=== PATIENT | female | born 1945 | race Caucasian/White ===

== ENCOUNTER 2019-03-10 08:16 | Day surgery (SDC) | payer MEDICARE, OTHER ==
--- NOTE | 2019-03-07 07:50 | HP ---
DATE OF SURGERY: 03/10/2019 HISTORY OF PRESENT ILLNESS: The patient is a 73 year-old with some hemorrhoid problems for a while. She worked as a certified dental assistant. On occasion some blood in her stool. She is in need of follow up screening colonoscopy and interested in possible internal hemorrhoid banding. PAST MEDICAL HISTORY: Hypothyroidism, hypertension. PAST SURGICAL HISTORY: Cholecystectomy in the past. MEDICATIONS: Hydrochlorothiazide, Levothyroxine. ALLERGIES: PREDNISONE. FAMILY HISTORY: Negative for colon cancer. SOCIAL HISTORY: No current smoking. Denies alcohol abuse. REVIEW OF SYSTEMS: Twelve systems reviewed. No chest pain or palpitations other systems negative or noncontributory as above and per preadmission questionnaire. PHYSICAL EXAMINATION: GENERAL: No acute distress. HEENT: Sclerae nonicteric. NECK: No JVD. CHEST: Equal excursion, nonlabored breathing. CVS: Regular rhythm. ABDOMEN: Soft. EXTREMITIES: No significant edema. NEURO: Alert, oriented, moving extremities symmetrically. No gross motor deficits noted. RECTAL: Deferred timed to endoscopy exam. IMPRESSION: Need for follow up colonoscopy. The last colonoscopy was 5 to 10 years ago. Additionally has some hemorrhoid issues. She was discussed the options. She is interested in considering internal hemorrhoid banding if indicated at the time, will proceed with colonoscopy with possible internal hemorrhoid banding as an outpatient. Risks and benefits explained in detail including but not limited to bleeding or infection, risk of bowel injury or perforation possibly requiring open procedure, risk of missed or nondiagnosis or incomplete exam possibly requiring barium enema, other studies or procedures, general risk of anesthesia or sedation, risk of bowel prep, postoperative risk of nausea or cramping. General risk of hemorrhoid banding, risk of bleeding or infection, risk of sphincter irritability, remote risk of aches or cramping as well as the possibility she could have progression of hemorrhoid disease that might require the procedures either banding or consideration of excisional therapy down the road. She understands and agrees to the planned procedure, will proceed with colonoscopy with possible internal hemorrhoid banding as an outpatient.
[~2019-03-10 08:16] MED LIST: Lactated Ringers 1,000 ML IV SCH
[2019-03-10] MEDS ORDERED: DIPRIVAN 200 MG/20 ML IV ONE (08:17)
[2019-03-10] MEDS ORDERED: ANUSOL-HC 2.5% CREAM 30 GM ONE (11:42)
[2019-03-10 12:43] VITALS: BP 142/71; PULSE 81; O2SAT 95
--- NOTE | 2019-03-10 14:37 | OP ---
SURGERY DATE/TIME: 03/10/2019 1113 PREOPERATIVE DIAGNOSIS: History of intermittent rectal bleeding, history of some internal and external hemorrhoids, need for follow up colonoscopy possible internal hemorrhoid banding. POSTOPERATIVE DIAGNOSES: 1) Adequate limited prep. 2) Pancolonic diverticulosis. 3) Grade II to III internal and external hemorrhoids. PROCEDURES: 1) Colonoscopy to terminal ileum. 2) Retrograde ileoscopy. 3) Internal hemorrhoid banding x3 columns. SURGEON: Dr. Michael Maurer. ANESTHESIA: MAC. ESTIMATED BLOOD LOSS: Minimal. INDICATIONS: As noted above. Risks and benefits explained in detail but not limited to and consent obtained. DESCRIPTION OF PROCEDURE AND FINDINGS: The patient is taken to the operating room. MAC anesthesia introduced. After official time out and no disagreement with planned procedure, digital rectal exam revealed internal and external hemorrhoids. There were no palpable rectal masses. Video colonoscope inserted and passed up through the slightly tortuous sigmoid, descending, transverse, ascending colon around to the cecum and up to terminal ileum. Retrograde ileoscopy performed which was grossly unremarkable. The scope was carefully withdrawn. The prep overall was adequate as there was a fair amount of liquidy semisolid stool, this was suction irrigated as well as possible but did somewhat limit the exam for very small lesions. She did have pancolonic diverticulosis a little more pronounced in the left colon. The scope is slowly and carefully withdrawn. There were no signs of any large polyps, masses or obstructing lesions. She had the internal and external hemorrhoids. The scope was then withdrawn over the next 9 minutes withdrawal time. The scope is withdrawn. Remaining under MAC anesthesia, lubricated half-jenkins retractor carefully inserted. Inspection of hemorrhoids felt she warranted internal hemorrhoid banding. First the left lateral suction band fired top edge of the hemorrhoid with a good tuft of tissue noted and band in good location. This was again repeated in the right posterior with a good tuft of tissue top edge of the hemorrhoid and again right anterior position. Otherwise good hemostasis was noted. The patient tolerated the procedure well. Findings discussed with the family out in the waiting area. I will see her back in the office next week.
== END 2019-03-10 12:35 | disposition home or self-care (01) ==
LOC: SDC 08:16
PROVIDERS: ATTEND Surgery
DX: K64.4 Residual hemorrhoidal skin tags (principal); K64.8 Other hemorrhoids; K57.30 Diverticulosis of large intestine without perforation or abscess without bleeding; I10 Essential (primary) hypertension; E03.9 Hypothyroidism, unspecified; Z79.899 Other long term (current) drug therapy
CPT/HCPCS: 45398; 99100; J2704; A9270-GY

== ENCOUNTER 2022-04-25 13:35 | Emergency (ER) | payer MEDICARE ==
[2022-04-25 13:53] VITALS: BP 183/75; PULSE 71; O2SAT 99
--- NOTE | 2022-04-25 14:23 | XRAY ---
Indication: Pain and bruising following fall. Comparison: None 2 view left forearm demonstrates osteopenia and faint triceps tendon calcifications sequela to old injury/inflammation. No other bony, articular, or soft tissue abnormalities. Wrist reported separately.
--- NOTE | 2022-04-25 14:23 | XRAY ---
Indication: Pain and bruising following fall. Comparison: None 3 view left wrist demonstrates osteopenia and mild multangular scaphoid degenerative changes. No other bony, articular, or soft tissue abnormalities.
--- NOTE | 2022-04-25 14:42 | ERPHSYRPT ---
- History of Present Illness Time Seen by Provider: 04/25/22 13:50 Source: patient Exam Limitations: no limitations Patient Subjective Stated Complaint: pt states "I was walking in my living room and I tripped over the rocking chair and put my hand out to catch myself." Triage Nursing Assessment: pt ambulated into the er; pt is axo x4; c/o left wrist injury; pt states 5/10 pain to left wrist and forearm; pt has bursing to left wrist; no deformity or swelling present to left wrist; strong left radial pulse; good cap refill to left hand; hypertensive Physician History: Patient is a 76-year-old female presents to our ED for evaluation of pain to her left forearm and wrist. Patient states she was at home ambulating when she tripped on the base of a rocking chair. Patient fell forward onto her left outstretched arm. No BHT or LOC. No neck pain. Cervical spine cleared clinically. Injury occurred just prior to arrival. Pain described as an ache that is well localized. No radiation. No numbness tingling or weakness. Pain worse with palpation and movement. Pain improved with rest. The fall was not associated with any neuro cardiovascular symptomology. No chest pain or shortness of breath. Patient otherwise feels well. Patient voices no other complaints or concerns at this time. Occurred: just prior to arrival Method of Injury: fell Quality: constant Severity of Pain-Max: moderate Severity of Pain-Current: mild Extremities Pain Location: forearm: left, wrist: left Modifying Factors: Improves With: movement Associated Symptoms: none Allergies/Adverse Reactions: cephalexin [From Keflex] Allergy (Intermediate, Verified 04/25/22 13:43) prednisone Allergy (Intermediate, Verified 04/25/22 13:43) Home Medications: Levothyroxine Sodium 175 Mcg [Synthroid 175 MCG] 150 mcg PO DAILY 05/27/13 [History] hydroCHLOROthiazide [Hydrochlorothiazide] 12.5 mg PO DAILY 05/27/13 [History] Fexofenadine HCl [Vanessa] 180 mg PO DAILY 03/10/19 [History] diphenhydrAMINE HCL [Benadryl] 25 mg PO BID 03/10/19 [History] Hx Tetanus, Diphtheria Vaccination/Date Given: No Hx Influenza Vaccination/Date Given: No Hx Pneumococcal Vaccination/Date Given: No Travel Risk - International Travel Have you traveled outside of the country in past 3 weeks: No - Coronavirus Screening Are you exhibiting any of the following symptoms?: No Close contact with a COVID-19 positive Pt in past 14-21 Days: No - Vaccine Status Have you recieved a Covid-19 vaccination: Yes Editor Sound: Moderna - Vaccination Dates Date of 2cond Vaccination (if applicable): unknown - Review of Systems Constitutional: No Symptoms, No Fever, No Chills Eyes: No Symptoms Ears, Nose, & Throat: No Symptoms Respiratory: No Symptoms, No Cough, No Dyspnea Cardiac: No Symptoms, No Chest Pain, No Edema, No Syncope Abdominal/Gastrointestinal: No Symptoms, No Abdominal Pain, No Nausea, No Vomiting, No Diarrhea Genitourinary Symptoms: No Symptoms, No Dysuria Musculoskeletal: No Symptoms, No Back Pain, No Neck Pain Skin: No Symptoms, No Rash Neurological: No Symptoms, No Dizziness, No Focal Weakness, No Sensory Changes Psychological: No Symptoms Endocrine: No Symptoms Hematologic/Lymphatic: No Symptoms Immunological/Allergic: No Symptoms All Other Systems: Reviewed and Negative - Past Medical History Pertinent Past Medical History: Yes Neurological History: No Pertinent History ENT History: Cataracts Cardiac History: No Pertinent History Respiratory History: No Pertinent History Endocrine Medical History: Hypoglycemia Musculoskeletal History: Arthritis GI Medical History: Gallbladder Disease History: No Pertinent History Psycho-Social History: No Pertinent History Female Reproductive Disorders: Breast Cancer Other Medical History: Hunter's dx; 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 - Past Surgical History Past Surgical History: Yes Neuro Surgical History: No Pertinent History Cardiac: No Pertinent History Respiratory: No Pertinent History Gastrointestinal: Cholecystectomy Genitourinary: No Pertinent History Musculoskeletal: No Pertinent History Female Surgical History: Lumpectomy Other Surgical History: Cataract genna - Social History Smoking Status: Former smoker Exposure to second hand smoke: No Drug Use: none Patient Lives Alone: Yes - Nursing Vital Signs Nursing Vital Signs: Initial Vital Signs Temperature 97.4 F 04/25/22 13:43 Pulse Rate 71 04/25/22 13:43 Respiratory Rate 22 04/25/22 13:43 Blood Pressure 183/75 04/25/22 13:43 O2 Sat by Pulse Oximetry 99 04/25/22 13:43 Pain Scale Pain Intensity 5 - Physical Exam General Appearance: no apparent distress, alert Eyes, Ears, Nose, Throat Exam: normal ENT inspection, pharynx normal, moist mucous membranes Neck Exam: normal inspection, non-tender, supple, full range of motion Cardiovascular/Respiratory Exam: chest non-tender, normal breath sounds, regular rate/rhythm, no respiratory distress Abdominal Exam: non-tender, soft, No guarding Back Exam: normal inspection, normal range of motion, No CVA tenderness, No vertebral tenderness Shoulder Exam: normal inspection, non-tender, no evidence of injury, normal ROM Elbow/Forearm Exam: swelling (Swelling and tenderness to left distal forearm. There is ecchymosis at this location as well. Range of motion guarded due to pain) Wrist Exam: normal inspection, non-tender, no evidence of injury, normal ROM, swelling (Swelling and tenderness to left distal forearm. There is ecchymosis at this location as well. Range of motion guarded due to zari) Hand Exam: normal inspection, non-tender, no evidence of injury, normal ROM Neuro/Tendon Exam: normal sensation, normal motor functions Mental Status Exam: alert, oriented x 3, cooperative Skin Exam: normal color, warm, dry SpO2 Interpretation: normal SpO2: 99 O2 Delivery: Room Air - Course Nursing assessment & vital signs reviewed: Yes - Radiology Exams Forearm X-ray Interpretation: Teleradiologist Report (Osteopenia, tricep calcification no fracture or dislocation) Wrist X-ray Interpretation: Teleradiologist Report (Scaphoid arthritis. No fracture dislocation observed.) Ordered Tests: Active Orders 24 hr Category Date Time Status FOREARM Stat Exams 04/25/22 14:09 Completed WRIST (MIN 3 VIEWS) Stat Exams 04/25/22 14:09 Completed - Progress Progress: improved Progress Note: X-rays negative for fracture dislocation. Left wrist immobilized in a splint. Patient understands that x-rays are not perfect. There is the possibility that a fracture may exist but may not be seen due to swelling. Patient understands that if pain continues beyond a week she will require repeat imaging and reassessment. Patient agrees to follow-up with primary care doctor within 48 hours for evaluation. She voices no other complaints or concerns at this time. Tylenol administered for pain control per patient's request. Portions of this note were created with voice recognition technology. There may be grammatical, spelling, punctuation or sound alike errors 04/25/22 14:55 Counseled pt/family regarding: diagnosis, need for follow-up, rad results - Departure Departure Disposition: Home Clinical Impression: Fall, Left wrist sprain, Wrist contusion Condition: Stable Critical Care Time: No Referrals: BELÉN SALTER DO [Primary Care Provider] - Follow up/PCP as directed
[2022-04-25] MEDS ORDERED: TYLENOL 325 MG PO ONE (14:47)
[2022-04-25] MEDS ORDERED: TYLENOL 325 MG ONE (14:50)
== END 2022-04-25 14:56 | disposition home or self-care (01) ==
LOC: ED 13:35
DX: S63.502A Unspecified sprain of left wrist, initial encounter (principal); S60.212A Contusion of left wrist, initial encounter; W01.0XXA Fall on same level from slipping, tripping and stumbling without subsequent striking against object, initial encounter; Y93.01 Activity, walking, marching and hiking; Y92.009 Unspecified place in unspecified non-institutional (private) residence as the place of occurrence of the external cause; M25.532 Pain in left wrist; Z79.899 Other long term (current) drug therapy
CPT/HCPCS: 73090; 73110; 99283; L3908; A9270-GY

== ENCOUNTER 2022-10-24 16:43 | Emergency (ER) | payer MEDICARE ==
--- NOTE | 2022-10-24 17:23 | ERPHSYRPT ---
- History of Present Illness Time Seen by Provider: 10/24/22 17:23 Source: patient Exam Limitations: no limitations Physician History: This is a 76-year-old white female who was wearing an old pair of slippers at her home when she slipped and then tripped and fell hitting her left side of her forehead on a cabinet. She also hit the left side of her humerus and left knee. She did not lose consciousness. She does have mild headache and mild neck pain. She has no chest pain. She has no shortness of breath. She has no abdominal pain. Occurred: just prior to arrival Reason for Fall: slipped, tripped Injuries/Pain Location: head, neck, upper extremity (Left humerus), lower extremity (Left anterior knee) Loss of Consciousness: no loss of consciousness Quality: aching Severity of Pain-Max: mild Severity of Pain-Current: mild Modifying Factors: Improves With: nothing Associated Symptoms (Fall): neck pain (Mild) Allergies/Adverse Reactions: cephalexin [From Keflex] Allergy (Intermediate, Verified 10/24/22 17:14) prednisone Allergy (Intermediate, Verified 10/24/22 17:14) Home Medications: Levothyroxine Sodium 175 Mcg [Synthroid 175 MCG] 150 mcg PO DAILY 05/27/13 [History] hydroCHLOROthiazide [Hydrochlorothiazide] 12.5 mg PO DAILY 05/27/13 [History] Fexofenadine HCl [Vanessa] 180 mg PO DAILY 03/10/19 [History] diphenhydrAMINE HCL [Benadryl] 25 mg PO BID 03/10/19 [History] Hx Tetanus, Diphtheria Vaccination/Date Given: No Hx Influenza Vaccination/Date Given: No Hx Pneumococcal Vaccination/Date Given: No Travel Risk - International Travel Have you traveled outside of the country in past 3 weeks: No - Coronavirus Screening Are you exhibiting any of the following symptoms?: No Close contact with a COVID-19 positive Pt in past 14-21 Days: No - Vaccine Status Have you recieved a Covid-19 vaccination: Yes Baking Powder Mixer: Moderna - Vaccination Dates Date of 2cond Vaccination (if applicable): unknown - Review of Systems Constitutional: No Symptoms Eyes: No Symptoms Ears, Nose, & Throat: No Symptoms Respiratory: No Symptoms Cardiac: No Symptoms Abdominal/Gastrointestinal: No Symptoms Genitourinary Symptoms: No Symptoms Musculoskeletal: Neck Pain (Mild with movement), Fall, Injury (Left humerus and left anterior knee) Skin: Other (Mild bruising left arm and left anterior knee) Neurological: No Symptoms Psychological: No Symptoms Endocrine: No Symptoms Hematologic/Lymphatic: No Symptoms Immunological/Allergic: No Symptoms All Other Systems: Reviewed and Negative - Past Medical History Pertinent Past Medical History: Yes Neurological History: No Pertinent History ENT History: Cataracts Cardiac History: No Pertinent History Respiratory History: No Pertinent History Endocrine Medical History: Hypoglycemia Musculoskeletal History: Arthritis GI Medical History: Gallbladder Disease History: No Pertinent History Psycho-Social History: No Pertinent History Female Reproductive Disorders: Breast Cancer Other Medical History: Hunter's dx; 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 - Past Surgical History Past Surgical History: Yes Neuro Surgical History: No Pertinent History Cardiac: No Pertinent History Respiratory: No Pertinent History Gastrointestinal: Cholecystectomy Genitourinary: No Pertinent History Musculoskeletal: No Pertinent History Female Surgical History: Lumpectomy Other Surgical History: Cataract genna - Social History Smoking Status: Former smoker Exposure to second hand smoke: No Drug Use: none Patient Lives Alone: Yes - Nursing Vital Signs Nursing Vital Signs: Initial Vital Signs Temperature 97.1 F 10/24/22 17:20 Pulse Rate 78 10/24/22 17:20 Respiratory Rate 18 10/24/22 17:20 Blood Pressure 150/67 10/24/22 17:20 O2 Sat by Pulse Oximetry 93 L 10/24/22 17:20 Pain Scale Pain Intensity 5 - Ron Coma Score Best Eye Response ([place]): (4) open spontaneously Best Verbal Response (Ron): (5) oriented Best Motor Response ([place]): (6) obeys commands Ron Total: 15 - Physical Exam General Appearance: no apparent distress, alert, anxiety Head Injury: no evidence of injury Eye Exam: PERRL/EOMI, eyes nml inspection ENT Exam: airway nml, nml ext.inspection Neck Exam: supple, trachea midline, full range of motion, normal alignment, normal inspection Respiratory/Chest Exam: normal breath sounds, No respiratory distress Gastrointestinal Exam: No tenderness Rectal Exam: not done Back Exam: normal inspection, normal range of motion, No CVA tenderness, No vertebral tenderness Extremity Exam: normal range of motion, evidence of injury (Anterior left knee bruising, bruising left humerus), pain with movement (Mild) Neurologic Exam: alert, oriented x 3, cooperative, graphic art designer II-XII nml as tested, normal mood/affect, nml cerebellar function, sensation nml Skin Exam: ecchymosis SpO2 Interpretation: normal (The above) O2 Delivery: Room Air - Course Nursing assessment & vital signs reviewed: Yes Ordered Tests: Active Orders 24 hr Category Date Time Status CERVICAL SPINE WO CONTRAST [CT] Stat Exams 10/24/22 17:23 Ordered HEAD WITHOUT CONTRAST [CT] Stat Exams 10/24/22 17:23 Ordered HUMERUS Stat Exams 10/24/22 18:27 Taken KNEE (3 VIEWS) Stat Exams 10/24/22 17:24 Taken - Progress Progress: unchanged Progress Note: 10/24/22 18:46 Left knee x-ray no acute fracture or dislocation. Left humerus x-ray shows no acute fracture or dislocation 10/24/22 18:46 Patient transferred care to Dr. Small at shift change. He will make final disposition based on the CT scan results that are pending Counseled pt/family regarding: diagnosis, need for follow-up, rad results - Departure Departure Disposition: Home Clinical Impression: Fall with no significant injury Condition: Stable Critical Care Time: No Referrals: BELÉN SALTER DO [Primary Care Provider] - Follow up/PCP as directed
[2022-10-24 20:10] VITALS: BP 138/70; PULSE 72; O2SAT 98
--- NOTE | 2022-10-25 08:37 | XRAY ---
Indication: Frontal head injury following fall. Multiple contiguous axial images obtained through the head without contrast. Comparison: None Several images are slightly degraded by motion artifact. Age-appropriate global atrophy and minimal periventricular degenerative micro-ischemia bilaterally. No acute intracranial hemorrhage, abnormal extra-axial fluid collection, or mass effect. Fourth ventricle is midline without hydrocephalus. Small left frontal scalp hematoma. Bony calvarium intact. Visualized paranasal sinuses and mastoid air cells are clear. Impression: Motion artifact. Left frontal scalp hematoma. No underlying fracture or acute intracranial abnormalities.
--- NOTE | 2022-10-25 08:39 | XRAY ---
Indication: Frontal head injury following fall. Multiple contiguous axial images obtained through the cervical spine. Sagittal and coronal reformatted images obtained. Comparison: None Age-related osteopenia. Axial images negative for acute fracture, suspicious bony lesions, or spinal canal stenosis. Minimal multilevel degenerative endplate spurring and mild multilevel degenerative facet hypertrophy left greater than right. Sagittal and coronal reformatted images demonstrates mild dextroscoliosis centered at C3-C4. No acute compression fracture, subluxation, or jumped facet. Normal appearing craniocervical junction. Visualized noncontrasted soft tissues demonstrates mild bilateral carotid calcifications. Lung apices demonstrate pulmonary emphysema with pleural parenchymal fibrosis/scarring. Impression: 1. Negative acute fracture/subluxation. 2. Osteopenia, multilevel degenerative changes, and dextroscoliosis. 3. Incidental arteriosclerotic disease and pulmonary emphysema.
--- NOTE | 2022-10-25 08:41 | XRAY ---
Indication: Pain following fall. Comparison: None 2 view left humerus demonstrates osteopenia and moderate acromioclavicular degenerative arthropathy. No other bony, articular, or soft tissue abnormalities.
--- NOTE | 2022-10-25 08:41 | XRAY ---
Indication: Pain following fall. Comparison: None 3 view left knee demonstrates osteopenia, lateral degenerative joint space narrowing, and mild scattered vascular calcifications. No other bony, articular, or soft tissue abnormalities.
== END 2022-10-24 20:05 | disposition home or self-care (01) ==
LOC: ED 16:43
DX: S00.03XA Contusion of scalp, initial encounter (principal); W01.190A Fall on same level from slipping, tripping and stumbling with subsequent striking against furniture, initial encounter; R51.9 Headache, unspecified; M54.2 Cervicalgia; M25.562 Pain in left knee; M79.622 Pain in left upper arm; Z79.899 Other long term (current) drug therapy
CPT/HCPCS: 70450; 72125; 73060; 73562; 99283

== ENCOUNTER 2022-12-01 11:38 | Emergency (ER) | payer MEDICARE ==
--- NOTE | 2022-12-01 12:33 | XRAY ---
Indication: Dizziness and loss of balance. No known injury. Multiple contiguous axial images obtained through the head without contrast. Comparison: October 24, 2022 Again study is slightly degraded by motion artifact throughout. Grossly stable age-appropriate global atrophy. No gross acute intracranial hemorrhage, abnormal extra-axial fluid collection, or mass effect. Fourth ventricle is midline without hydrocephalus. Bony calvarium grossly intact. Visualized paranasal sinuses and mastoid air cells are clear. Impression: Again motion artifact limits exam. Grossly stable negative CT head without contrast exam.
--- NOTE | 2022-12-01 12:35 | XRAY ---
Indication: Lethargy. Dizziness and loss of balance. Comparison: August 14, 2018 Portable apical lordotic chest less inflated with new minimal left base linear subsegmental atelectasis/scarring. Remaining heart and lungs unremarkable. Bony thorax intact again with osteopenia and degenerative changes.
[2022-12-01] MEDS ORDERED: BABY ASPIRIN 81 MG CHEW PO ONE (12:49)
[2022-12-01 12:59] VITALS: BP 155/101; PULSE 86; O2SAT 97
[2022-12-01 13:00] LABS: Absolute Neutrophil Ct (ANC) 5.42 x10^3/uL (1.4-6.9); Basophil (Absolute #) 0.03 x10^3/uL (0-0.4); Eosinophil % 0.4 % (0.00-5.0); Eosinophil (Absolute #) 0.03 x10^3/uL (0-0.5); Hematocrit 43.9 % (35-47); Hemoglobin 14.6 g/dL (12.0-16.0); Lymphocyte (Absolute #) 1.28 x10^3/uL (1.0-4.6); Lymphocytes % 16.4 % (24.0-44.0); Mean Cell Volume 85.7 fL (78-100); Mean Corpuscular Hemoglobin 28.5 pg (26-32); Mean Corpuscular Hgb Concent. 33.3 g/dL (32-36); Mean Platelet Volume 10.9 fL (7.5-11.0); Monocytes % 12.8 % (0.0-12.0); Neutrophil % 69.5 % (36.0-66.0); Platelet Count 228 x10^3/uL (150-450); Red Blood Count 5.12 x10^6/uL (4.1-5.4); Red Cell Distribution Width 13.5 % (11.5-14.0); White Blood Count 7.8 x10^3/uL (4.0-10.5)
[2022-12-01 13:14] LABS: ALBUMIN 4.1 g/dL (3.5-5.0); ALKALINE PHOSPHATASE 145 U/L (38-126); ANION GAP 10.6 MEQ/L (5-15); BLOOD UREA NITROGEN 24 mg/dL (7-17); CHLORIDE 95 mmol/L (98-107); Calcium 9.1 mg/dL (8.4-10.2); Carbon Dioxide 31 mmol/L (22-30); Creatinine 1 0.93 mg/dL (0.52-1.04); EST GLOMERULAR FILTRATION RATE > 60.0 ML/MIN; Glucose 127 mg/dL (74-106); SGOT/AST 58 U/L (14-36); SGPT/ALT 30 U/L (0-35); SODIUM 134 mmol/L (137-145); Total Protein 7.5 g/dL (6.3-8.2)
--- NOTE | 2022-12-01 13:30 | ERPHSYRPT ---
- History of Present Illness Source: patient, other (Son) Exam Limitations: other (Poor historian) Patient Subjective Stated Complaint: C/O urinary complaints/symptoms since last Sunday. States she completed one ATB for a UTI and is currently on her second antibiotic for this. She states she thinks it is working; pain is now gone. She does now c/o sore throat, being hoarse, some nausea, runny nose, generalized not feeling well. Triage Nursing Assessment: Patient ambulated back to ED without difficulties. She is alert and oriented. Denies pain. No SOB. No cough. No nasal drainage noted at this time. LUGO WNL. Skin tone normal. Physician History: 77 yo WF w cc of ST x2 days/coryza/nausea. Pt placed on Cipro 3 days ago for a UTI. She denies dysuria/hematuria/fever/vomiting/diarrhea/chest pain/abdominal pain/fever/cough. Son states that she has been off balance but focal weakness denied. Pt has a h/o R breast Ca w lumpectomy and radiation therapy 2 years ago. CVA/DM/HTN/CAD/MD/hyperlipidemia all denied. She did smoke 1ppd until 14 yrs ago. Timing/Duration: other (2 days) Severity: mild Modifying Factors: Improves With: nothing Associated Symptoms: nausea, malaise, No vomiting, No abdominal pain, No shortness of breath, No heartburn, No diaphoresis, No cough, No chills, No chest pain, No fever, No headaches, No loss of appetite, No rash, No syncope, No seizure Allergies/Adverse Reactions: cephalexin [From Keflex] Allergy (Intermediate, Verified 12/01/22 11:54) prednisone Allergy (Intermediate, Verified 12/01/22 11:54) Home Medications: Levothyroxine Sodium 175 Mcg [Synthroid 175 MCG] 150 mcg PO DAILY 05/27/13 [History] Letrozole [Femara] 1 tab PO DAILY 12/01/22 [History] Hx Tetanus, Diphtheria Vaccination/Date Given: Yes Hx Influenza Vaccination/Date Given: No Hx Pneumococcal Vaccination/Date Given: No Immunizations Up to Date: Yes Travel Risk - International Travel Have you traveled outside of the country in past 3 weeks: No - Coronavirus Screening Are you exhibiting any of the following symptoms?: No Close contact with a COVID-19 positive Pt in past 14-21 Days: No - Vaccine Status Have you recieved a Covid-19 vaccination: Yes Electronic Device Monitor: Moderna - Vaccination Dates Date of 2cond Vaccination (if applicable): ? - Review of Systems Constitutional: No Symptoms, Malaise Eyes: No Symptoms Ears, Nose, & Throat: No Symptoms, Nose Congestion, Nose Discharge, Throat Pain Respiratory: No Symptoms Cardiac: No Symptoms Abdominal/Gastrointestinal: No Symptoms, Nausea Genitourinary Symptoms: No Symptoms Musculoskeletal: No Symptoms Skin: No Symptoms Neurological: No Symptoms Psychological: No Symptoms Endocrine: No Symptoms Hematologic/Lymphatic: No Symptoms Immunological/Allergic: No Symptoms - Past Medical History Pertinent Past Medical History: Yes Neurological History: No Pertinent History ENT History: Cataracts Cardiac History: No Pertinent History Respiratory History: No Pertinent History Endocrine Medical History: Hypoglycemia Musculoskeletal History: Arthritis GI Medical History: Gallbladder Disease History: No Pertinent History Psycho-Social History: No Pertinent History Female Reproductive Disorders: Breast Cancer Other Medical History: Hunter's dx - Past Surgical History Past Surgical History: Yes Neuro Surgical History: No Pertinent History Cardiac: No Pertinent History Respiratory: No Pertinent History Gastrointestinal: Cholecystectomy Genitourinary: No Pertinent History Musculoskeletal: No Pertinent History Female Surgical History: Lumpectomy Other Surgical History: Cataract genna - Social History Smoking Status: Former smoker Exposure to second hand smoke: No Drug Use: none Patient Lives Alone: Yes Significant Family History: no pertinent family hx - Nursing Vital Signs Nursing Vital Signs: Initial Vital Signs Pulse Rate 86 12/01/22 12:39 Respiratory Rate 20 12/01/22 12:39 Blood Pressure 155/101 12/01/22 12:39 O2 Sat by Pulse Oximetry 97 12/01/22 12:39 Pain Scale Pain Intensity 0 Hypertensive - Physical Exam General Appearance: no apparent distress Eye Exam: PERRL/EOMI, eyes nml inspection Ears, Nose, Throat Exam: normal ENT inspection, TMs normal, pharynx normal, moist mucous membranes Neck Exam: normal inspection, non-tender, supple, full range of motion, No meningismus, No mass, No Brudzinski, No Kernig's Respiratory Exam: normal breath sounds, lungs clear, airway intact, No respiratory distress Cardiovascular Exam: regular rate/rhythm, normal heart sounds, normal peripheral pulses, capillary refill <2 sec, No murmur Gastrointestinal/Abdomen Exam: soft, normal bowel sounds, No tenderness Back Exam: normal inspection, normal range of motion, No CVA tenderness, No vertebral tenderness Extremity Exam: normal inspection, normal range of motion Neurologic Exam: alert, oriented x 3, cooperative, 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, normal mood/affect, nml cerebellar function, nml station & gait, sensation nml, other (No pronator drift/neg Rhomberg) Skin Exam: normal color, warm, dry Lymphatic Exam: No adenopathy SpO2 Interpretation: normal SpO2: 97 O2 Delivery: Room Air - Course Nursing assessment & vital signs reviewed: Yes EKG Interpreted by Me: RATE (NSR/Rate 85/ST segment elevation V1-V2 consistent w acute anterior MD/Prolonged QTc/ST depression V5-V6/EKG #2/NSR/Prolonged QTc/ST segment elevation V2-V2 consistent w acute anterior MD/ST depression V5-V6) - Radiology Exams Chest X-ray Interpretation: Reviewed by me, Discussed w/ radiologist (CXR neg per Rad) - CT Exams Head CT Interpretation: Discussed w/radiologist (CT head neg per Rad) Ordered Tests: Active Orders 24 hr Category Date Time Status EKG-ER Only STAT Care 12/01/22 12:07 Completed CHEST 1 VIEW (PORTABLE) Stat Exams 12/01/22 12:07 Completed HEAD WITHOUT CONTRAST [CT] Stat Exams 12/01/22 12:09 Completed CBC W DIFF Stat Lab 12/01/22 12:50 Completed CMP Stat Lab 12/01/22 12:50 Completed PROTIME WITH INR Stat Lab 12/01/22 12:50 Completed PTT Stat Lab 12/01/22 12:50 Completed TROPONIN Q4H Lab 12/01/22 12:50 Completed Medication Summary Discontinued Medications Generic Name Dose Route Start Last Admin Trade Name Freq PRN Reason Stop Dose Admin Aspirin 324 mg 12/01/22 12:49 12/01/22 12:50 Aspirin 81 Mg Tab.Chew PO 12/01/22 12:50 324 mg STAT ONE Administration Lab/Rad Data: Laboratory Result Diagrams 12/01/22 12:50 12/01/22 12:50 Laboratory Results 12/01/22 12/01/22 12/01/22 Range/Units 12:50 12:50 12:50 WBC (4.0-10.5) x10^3/uL RBC (4.1-5.4) x10^6/uL Hgb (12.0-16.0) g/dL Hct (35-47) % MCV (78-100) fL MCH (26-32) pg MCHC (32-36) g/dL RDW (11.5-14.0) % Plt Count (150-450) x10^3/uL MPV (7.5-11.0) fL Gran % (36.0-66.0) % Immature Gran % (Auto) (0.00-0.4) % Nucleat RBC Rel Count (0.00-0.1) % Eos # (Auto) (0-0.5) x10^3/uL Immature Gran # (Auto) (0.00-0.03) x10^3u/L Absolute Lymphs (auto) (1.0-4.6) x10^3/uL Absolute Monos (auto) (0.0-1.3) x10^3/uL Absolute Nucleated RBC (0.00-0.01) x10^3u/L Lymphocytes % (24.0-44.0) % Monocytes % (0.0-12.0) % Eosinophils % (0.00-5.0) % Basophils % (0.0-0.4) % Absolute Granulocytes (1.4-6.9) x10^3/uL Basophils # (0-0.4) x10^3/uL PT 10.8 (9.4-12.5) SECONDS INR 1.02 (0.8-3.0) APTT 27.2 (25.1-36.5) SECONDS Sodium 134 L (137-145) mmol/L Potassium 3.0 L* (3.5-5.1) mmol/L Chloride 95 L (98-107) mmol/L Carbon Dioxide 31 H (22-30) mmol/L Anion Gap 10.6 (5-15) MEQ/L BUN 24 H (7-17) mg/dL Creatinine 0.93 (0.52-1.04) mg/dL Estimated GFR > 60.0 ML/MIN Glucose 127 H (74-106) mg/dL Calcium 9.1 (8.4-10.2) mg/dL Total Bilirubin 0.70 (0.2-1.3) mg/dL AST 58 H (14-36) U/L ALT 30 (0-35) U/L Alkaline Phosphatase 145 H (38-126) U/L Troponin I 4.460 H* (0.000-0.034) ng/mL Serum Total Protein 7.5 (6.3-8.2) g/dL Albumin 4.1 (3.5-5.0) g/dL 12/01/22 Range/Units 12:50 WBC 7.8 (4.0-10.5) x10^3/uL RBC 5.12 (4.1-5.4) x10^6/uL Hgb 14.6 (12.0-16.0) g/dL Hct 43.9 (35-47) % MCV 85.7 (78-100) fL MCH 28.5 (26-32) pg MCHC 33.3 (32-36) g/dL RDW 13.5 (11.5-14.0) % Plt Count 228 (150-450) x10^3/uL MPV 10.9 (7.5-11.0) fL Gran % 69.5 H (36.0-66.0) % Immature Gran % (Auto) 0.5 H (0.00-0.4) % Nucleat RBC Rel Count 0.0 (0.00-0.1) % Eos # (Auto) 0.03 (0-0.5) x10^3/uL Immature Gran # (Auto) 0.04 H (0.00-0.03) x10^3u/L Absolute Lymphs (auto) 1.28 (1.0-4.6) x10^3/uL Absolute Monos (auto) 1.00 (0.0-1.3) x10^3/uL Absolute Nucleated RBC 0.00 (0.00-0.01) x10^3u/L Lymphocytes % 16.4 L (24.0-44.0) % Monocytes % 12.8 H (0.0-12.0) % Eosinophils % 0.4 (0.00-5.0) % Basophils % 0.4 (0.0-0.4) % Absolute Granulocytes 5.42 (1.4-6.9) x10^3/uL Basophils # 0.03 (0-0.4) x10^3/uL PT (9.4-12.5) SECONDS INR (0.8-3.0) APTT (25.1-36.5) SECONDS Sodium (137-145) mmol/L Potassium (3.5-5.1) mmol/L Chloride (98-107) mmol/L Carbon Dioxide (22-30) mmol/L Anion Gap (5-15) MEQ/L BUN (7-17) mg/dL Creatinine (0.52-1.04) mg/dL Estimated GFR ML/MIN Glucose (74-106) mg/dL Calcium (8.4-10.2) mg/dL Total Bilirubin (0.2-1.3) mg/dL AST (14-36) U/L ALT (0-35) U/L Alkaline Phosphatase (38-126) U/L Troponin I (0.000-0.034) ng/mL Serum Total Protein (6.3-8.2) g/dL Albumin (3.5-5.0) g/dL - Progress Progress: unchanged Progress Note: 12/01/22 13:[address] segment elevation w Q waves V2-V3 consistent w acute anterior MD. Pt also w ST segment depression V5-V6. [facility] and spoke w Dr. Desai who reviewed EKG and agreed probable anterior STEMI. Pt given [address] Desai accepted pt for emergent cath. He did not want to give Plavix or heparin. Pt denied chest pain/dyspnea during entire stay. She was in stable condition when EMS assumed care of pt. 12/01/22 14:36 All labs reviewed after pt transferred/Elevated troponin/Mild hypokalemia CXR/CT head results reviewed and shared w pt/son Additional history per son 12/01/22 14:37 Counseled pt/family regarding: diagnosis, need for follow-up, rad results - Departure Departure Disposition: Transfer Clinical Impression: Acute anterior wall MD, Hypokalemia Condition: Stable Critical Care Time: Yes Critical Care Time(excluding separately billable procedures): Critical 30-74 mi ns Referrals: BELÉN SALTER, [Primary Care Provider] - Follow up/PCP as directed
[2022-12-01 13:32] LABS: INR 1.02 (0.8-3.0); PROTIME 10.8 SECONDS (9.4-12.5); PTT 27.2 SECONDS (25.1-36.5)
== END 2022-12-01 13:17 | disposition short-term general hospital (02) ==
LOC: ED 11:38
DX: I21.09 ST elevation (STEMI) myocardial infarction involving other coronary artery of anterior wall (principal); E87.6 Hypokalemia; J02.9 Acute pharyngitis, unspecified; R09.81 Nasal congestion; R11.0 Nausea; Z79.899 Other long term (current) drug therapy
CPT/HCPCS: 36000; 36415; 70450; 71045; 80053; 84484; 85025; 85610; 85730; 93005; 99285; 99291; A9270-GY

== ENCOUNTER 2025-08-02 02:44 | Emergency (ER) | payer MEDICARE, OTHER ==
[2025-08-02 02:49] VITALS: TEMP 97.2
--- NOTE | 2025-08-02 02:54 | ERPHSYRPT ---
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 Timing/Duration: today, resolved prior to arrival Severity: mild Character of Deficits: none Deficits: no difficulties Baseline/Normal Cognition: alert oriented x 3 Current Cognition: alert oriented x 3 Associated Symptoms: nausea, vomiting, No weakness, No numbness/tingling in legs/feet, No seizures, No slurred speech, No trouble walking Allergies/Adverse Reactions: cephalexin [From Keflex] Allergy (Intermediate, Verified 08/02/25 03:34) ertapenem Allergy (Intermediate, Verified 08/02/25 03:34) prednisone Allergy (Intermediate, Verified 08/02/25 03:34) Home Medications: Levothyroxine Sodium 175 Mcg [Synthroid 175 MCG] 150 mcg PO DAILY 05/27/13 [History] Letrozole [Femara] 1 tab PO DAILY 12/01/22 [History] Hx Tetanus, Diphtheria Vaccination/Date Given: Yes Hx Influenza Vaccination/Date Given: No Hx Pneumococcal Vaccination/Date Given: No - Review of Systems Constitutional: No Fever, No Chills Eyes: No Symptoms Ears, Nose, & Throat: No Symptoms Respiratory: No Cough, No Dyspnea Cardiac: No Chest Pain, No Edema, No Syncope Abdominal/Gastrointestinal: Nausea, Vomiting Genitourinary Symptoms: No Dysuria Musculoskeletal: No Back Pain, No Neck Pain Skin: No Rash Neurological: Dizziness, No Focal Weakness, No Sensory Changes Psychological: No Symptoms Endocrine: No Symptoms All Other Systems: Reviewed and Negative - Past Medical History Pertinent Past Medical History: Yes Neurological History: No Pertinent History ENT History: Cataracts Cardiac History: No Pertinent History Respiratory History: No Pertinent History Endocrine Medical History: Hypoglycemia Musculoskeletal History: Arthritis GI Medical History: Gallbladder Disease History: No Pertinent History Psycho-Social History: No Pertinent History Female Reproductive Disorders: Breast Cancer Other Medical History: Hunter's dx - Past Surgical History Past Surgical History: Yes Neuro Surgical History: No Pertinent History Cardiac: No Pertinent History Respiratory: No Pertinent History Gastrointestinal: Cholecystectomy Genitourinary: No Pertinent History Musculoskeletal: No Pertinent History Female Surgical History: Lumpectomy Other Surgical History: Cataract genna Significant Family History: no pertinent family hx - Social History Smoking Status: Former smoker Exposure to second hand smoke: No Drug Use: none - Nursing Vital Signs Nursing Vital Signs: Initial Vital Signs Temperature 97.2 F 08/02/25 02:46 Pulse Rate 73 08/02/25 02:46 Respiratory Rate 16 08/02/25 02:46 Blood Pressure 178/97 08/02/25 02:46 O2 Sat by Pulse Oximetry 97 08/02/25 02:46 Pain Scale Pain Intensity 0 - Ron Coma Scale Best Eye Response (Ron): (4) open spontaneously Best Verbal Response (Ron): (5) oriented Best Motor Response (Dingess): (6) obeys commands Dingess Total: 15 - Physical Exam General Appearance: no apparent distress, alert Eye Exam: bilateral eye: PERRL, EOMI Ears, Nose, Throat Exam: normal ENT inspection, moist mucous membranes Neck Exam: normal inspection, non-tender, supple Respiratory: normal breath sounds, lungs clear, airway intact, No respiratory distress Cardiovascular: regular rate/rhythm, No edema Gastrointestinal: soft, No tenderness, No distention Back Exam: normal inspection Extremity Exam: normal inspection, No pedal edema Mental Status: alert, 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 midline Coordination/Gait: normal finger to nose, normal gait Skin Exam: normal color, warm, dry, No rash SpO2: 97 Ordered Tests: Active Orders 24 hr Category Date Time Status Civil Lawyer STAT Care 08/02/25 02:51 Active IV Insertion STAT Care 08/02/25 02:50 Active CBC W DIFF Stat Lab 08/02/25 03:07 Completed CMP Stat Lab 08/02/25 03:07 Completed MAGNESIUM Stat Lab 08/02/25 03:07 Completed UA W/RFX UR CULTURE Stat Lab 08/02/25 04:11 Completed Medication Summary Discontinued Medications Generic Name Dose Route Start Last Admin Trade Name Freq PRN Reason Stop Dose Admin Meclizine HCl 25 mg 08/02/25 02:50 08/02/25 03:03 Meclizine Hcl 25 Mg Tablet PO 08/02/25 02:51 25 mg STAT ONE Administration Meclizine HCl Confirm 08/02/25 03:03 Meclizine Hcl 25 Mg Tablet Administered 08/02/25 03:04 Dose 25 mg .ROUTE .STK-MED ONE Lab/Rad Data: Laboratory Result Diagrams 08/02/25 03:07 08/02/25 03:07 Laboratory Results 08/02/25 08/02/25 08/02/25 Range/Units 04:11 03:07 03:07 WBC 10.4 H (3.98-10.04) x10^3/uL RBC 4.47 (3.93-5.22) x10^6/uL Hgb 13.1 (11.2-15.7) g/dL Hct 41.3 (34.1-44.9) % MCV 92.4 (79.4-94.8) fL MCH 29.3 (25.6-32.2) pg MCHC 31.7 L (32.2-35.5) g/dL RDW 13.5 (11.7-14.4) % Plt Count 210 (182-369) x10^3/uL MPV 10.3 (9.4-12.3) fL Gran % 78.4 H (34.0-71.1) % Immature Gran % (Auto) 0.4 (0.001-0.429) % Nucleat RBC Rel Count 0.0 (0.00-0.2) % Eos # (Auto) 0.08 (0.04-0.36) x10^3/uL Immature Gran # (Auto) 0.04 H (0.001-0.031) x10^3u/L Absolute Lymphs (auto) 1.47 (1.18-3.74) x10^3/uL Absolute Monos (auto) 0.62 (0.24-0.86) x10^3/uL Absolute Nucleated RBC 0.00 (0.00-0.012) x10^3u/L Lymphocytes % 14.1 L (19.3-51.7) % Monocytes % 6.0 (4.7-12.5) % Eosinophils % 0.8 (0.7-5.8) % Basophils % 0.3 (0.1-1.2) % Absolute Granulocytes 8.18 H (1.56-6.13) x10^3/uL Basophils # 0.03 (0.01-0.08) x10^3/uL Sodium 138 (135-145) mmol/L Potassium 3.7 (3.5-5.1) mmol/L Chloride 106 (98-107) mmol/L Carbon Dioxide 26 (22-30) mmol/L Anion Gap 9.9 (5-15) MEQ/L BUN 12 (7-17) mg/dL Creatinine 0.51 L (0.52-1.04) mg/dL Estimated GFR 96.1 ML/MIN Glucose 148 H (74-106) mg/dL Calcium 8.7 (8.4-10.2) mg/dL Magnesium 2.1 (1.6-2.3) mg/dL Total Bilirubin 0.60 (0.2-1.3) mg/dL AST 28 (14-36) U/L ALT 21 (0-35) U/L Alkaline Phosphatase 99 (38-126) U/L Serum Total Protein 6.7 (6.3-8.2) g/dL Albumin 4.1 (3.5-5.0) g/dL Urine Color Yellow (Yellow) Urine Appearance Clear (Clear) Urine pH 7.0 (4.6-8.0) Ur Specific [place] 1.015 (1.005-1.030) Urine Protein Negative (Negative) Urine Glucose (UA) Negative (Negative) mg/dL Urine Ketones Trace A (Negative) Urine Blood Negative (Negative) Urine Nitrite Negative (Negative) Urine Bilirubin Negative (Negative) Urine Urobilinogen 1.0 A (0.2) mg/dL Ur Leukocyte Esterase Trace A (Negative) U Hyaline Cast (Auto) NONE SEEN (0-2) /LPF Urine Microscopic RBC 0-2 (0-5) /HPF Urine Microscopic WBC 3-5 (0-5) /HPF Ur Epithelial Cells Moderate A (None Seen) /HPF Urine Bacteria None Seen (None Seen) /HPF Urine Culture Reflexed NO (NO) - Progress Progress: improved Progress Note: 08/02/25 04:41 [place]els patient is feeling improved labs unremarkable patient is likely suffering from vertigo patient was describing intense room spinning feeling feels improved after the meclizine patient be discharged home with a short course of meclizine - Departure Departure Disposition: Home Clinical Impression: Vertigo Condition: Stable Critical Care Time: No Referrals: SABRINA PUCKETT DO [Primary Care Provider, [facility]] - Follow up/PCP as directed Instructions: Nausea -- Adult, Vertigo (a type of dizziness) Prescriptions: Ondansetron ODT 4 MG [Zofran Odt 4 mg] 4 mg PO Q6HPRN PRN #10 tab PRN Reason: Nausea Meclizine HCl 25 mg [Antivert 25 mg] 25 mg PO DAILY PRN PRN #10 tablet PRN Reason: Dizziness
[2025-08-02] MEDS ORDERED: ANTIVERT 25 MG ONE ×2 (03:03→04:47)
[2025-08-02] MEDS: ANTIVERT 25 MG PO ONE ×2 (03:03→04:48)
[2025-08-02 03:10] LABS: BASOPHIL % 0.3 % (0.1-1.2); Basophil (Absolute #) 0.03 x10^3/uL (0.01-0.08); Eosinophil (Absolute #) 0.08 x10^3/uL (0.04-0.36); Hematocrit 41.3 % (34.1-44.9); Hemoglobin 13.1 g/dL (11.2-15.7); IMMATURE GRAN # 0.04 x10^3u/L (0.001-0.031); IMMATURE GRAN % 0.4 % (0.001-0.429); Lymphocyte (Absolute #) 1.47 x10^3/uL (1.18-3.74); Mean Corpuscular Hemoglobin 29.3 pg (25.6-32.2); Mean Corpuscular Hgb Concent. 31.7 g/dL (32.2-35.5); Monocyte (Absolute #) 0.62 x10^3/uL (0.24-0.86); NUCLEATED RBC # 0.00 x10^3u/L (0.00-0.012); NUCLEATED RBC % 0.0 % (0.00-0.2); Platelet Count 210 x10^3/uL (182-369); Red Blood Count 4.47 x10^6/uL (3.93-5.22); White Blood Count 10.4 x10^3/uL (3.98-10.04)
[2025-08-02 03:22] LABS: Calcium 8.7 mg/dL (8.4-10.2); Carbon Dioxide 26.0 mmol/L (22-30); Creatinine 1 0.51 mg/dL (0.52-1.04); EST GLOMERULAR FILTRATION RATE 96.1 ML/MIN; Glucose 148.0 mg/dL (74-106); Potassium 3.7 mmol/L (3.5-5.1); SGOT/AST 28.0 U/L (14-36); SGPT/ALT 21.0 U/L (0-35); Total Protein 6.7 g/dL (6.3-8.2)
[2025-08-02 04:20] LABS: Glucose, Urine Negative (Negative); Protein,Urine Dip Negative (Negative); RBC 0-2 /HPF (0-5)
[2025-08-02 05:09] VITALS: BP 156/85; PULSE 95; RESP 15; O2SAT 94
== END 2025-08-02 05:05 | disposition home or self-care (01) ==
LOC: ED 02:44
DX: R42 Dizziness and giddiness (principal); R11.2 Nausea with vomiting, unspecified; Z79.899 Other long term (current) drug therapy